=== PATIENT | female | born 1960 | race Caucasian/White ===

== ENCOUNTER 2023-12-31 14:57 | Emergency (ER) | payer MEDICAID ==
[~2023-12-31] VITALS: Ht 162.6 cm; Wt 60.0 kg
[2023-12-31] MEDS ORDERED: DOXY-356 PO (16:24)
[2023-12-31] MEDS: DOXYCYCLINE 100MG CAPSULE PO STA (16:44)
[2023-12-31 16:52] VITALS: BP 122/68; PULSE 78; RESP 18; TEMP 97.8; O2SAT 97
== END 2023-12-31 16:53 | disposition home or self-care (01) ==
LOC: ER 14:58
DX: L03.115 Cellulitis of right lower limb (principal); E11.9 Type 2 diabetes mellitus without complications; Z88.2 Allergy status to sulfonamides; Z79.2 Long term (current) use of antibiotics
CPT/HCPCS: 73630; 99283